=== PATIENT | female | born 1980 | race African-American/Black ===

== ENCOUNTER 2017-01-08 18:05 | Emergency (ER) | payer MEDICARE, OTHER ==
--- NOTE | 2017-01-08 19:08 | ER Document Report ---
ED Medical Screen (RME) - General Chief Complaint: Anxiety Stated Complaint: POSSIBLE PANIC ATTACK Time Seen by Provider: 01/08/17 19:06 Mode of Arrival: Ambulatory Information source: Patient - pt has been under a great deal of stress recently and feels her anxiety is very high. Is not sure if she could hurt herself. Denies HI TRAVEL OUTSIDE OF THE [place] IN LAST 30 DAYS: No - Related Data Allergies/Adverse Reactions: Penicillins Allergy (Verified 01/08/17 18:22) Past Medical History Renal/ Medical History: Denies: Hx Peritoneal Dialysis Physical Exam - Vital signs Vitals: Temp Pulse Resp BP Pulse Ox 98.0 F 84 18 139/94 H 99 01/08/17 18:22 01/08/17 18:22 01/08/17 18:22 01/08/17 18:22 01/08/17 18:22 Course - Vital Signs Vital signs: Temp Pulse Resp BP Pulse Ox 98.0 F 84 18 139/94 H 99 01/08/17 18:22 01/08/17 18:22 01/08/17 18:22 01/08/17 18:22 01/08/17 18:22 Doctor's Discharge - Discharge Instructions: Anxiety ([facility])
--- NOTE | 2017-01-08 19:54 | ER Document Report ---
ED Psych Disorder / Suicide - General Chief Complaint: Anxiety Stated Complaint: POSSIBLE PANIC ATTACK Time Seen by Provider: 01/08/17 19:06 Mode of Arrival: Ambulatory Information source: Patient TRAVEL OUTSIDE OF THE [place] IN LAST 30 DAYS: No - HPI Patient complains to provider of: Suicidal ideation Onset: Other Onset was: Gradual Suicide Risk Factors: Depressed, Lack of social support Normal mood: No Associated symptoms: Depressed, Flat affect Similar symptoms previously: Yes Recently seen / treated by doctor: No Notes: 36-year-old female who presents to the emergency room complaining of depression and anxiety with possible panic attacks, she reports over the past week her symptoms have been worsening, she has a history of symptoms in the past with a suicide attempt by overdose approximately 10 years ago, she feels as though she is at that point again although she does not have any active suicidal plan, she reports hearing voices telling her that life is not worth it anymore and she does feel like she should just "crawl in a hole and ", patient is tearful, she reports that she does not want to be a mother anymore, she does not want to be a anymore, she feels overwhelmed because 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, her 23-year-old cousin who is currently and her , she has a difficult time opening up and talking to people when she is feeling overwhelmed and therefore takes the burden upon herself, she has been on medications in the past but not in recent years, she has not been in any type of mental health program within the past few years - Related Data Allergies/Adverse Reactions: Penicillins Allergy (Verified 01/08/17 18:22) Home Medications: Current Home Medications No Home Medications 01/08/17 [History] Past Medical History - General Information source: Patient - pt has been under a great deal of stress recently and feels her anxiety is very high. Is not sure if she could hurt herself. Denies HI - Social History Smoking Status: Unknown if Ever Smoked Family History: Reviewed & Not Pertinent Patient has suicidal ideation: No Patient has homicidal ideation: No Renal/ Medical History: Denies: Hx Peritoneal Dialysis Review of Systems - Review of Systems Constitutional: No symptoms reported EENT: No symptoms reported Cardiovascular: No symptoms reported Respiratory: No symptoms reported Gastrointestinal: No symptoms reported Genitourinary: No symptoms reported Female Genitourinary: No symptoms reported Musculoskeletal: No symptoms reported Skin: No symptoms reported Hematologic/Lymphatic: No symptoms reported Neurological/Psychological: See HPI -: Yes All other systems reviewed and negative Physical Exam - Vital signs Vitals: Temp Pulse Resp BP Pulse Ox 98.0 F 84 18 139/94 H 99 01/08/17 18:22 01/08/17 18:22 01/08/17 18:22 01/08/17 18:22 01/08/17 18:22 Interpretation: Normal - General General appearance: Appears well, Alert - HEENT Head: Normocephalic, Atraumatic Eyes: Normal Pupils: PERRL - Respiratory Respiratory status: No respiratory distress Chest status: Nontender Breath sounds: Normal Chest palpation: Normal - Cardiovascular Rhythm: Regular Heart sounds: Normal auscultation Murmur: No - Abdominal Inspection: Normal Distension: No distension Bowel sounds: Normal Tenderness: Nontender Organomegaly: No organomegaly - Back Back: Normal, Nontender - Extremities General upper extremity: Normal inspection, Nontender, Normal color, Normal ROM , Normal temperature General lower extremity: Normal inspection, Nontender, Normal color, Normal ROM , Normal temperature, Normal weight bearing. No: Kelli's sign - Neurological Neuro grossly intact: Yes Cognition: Normal Orientation: AAOx4 Viola Coma Scale Eye Opening: Spontaneous Viola Coma Scale Verbal: Oriented Presley Coma Scale Motor: Obeys Commands Presley Coma Scale Total: 15 Speech: Normal Motor strength normal: LUE, RUE, LLE, RLE Sensory: Normal - Psychological Associated symptoms: Depressed, Flat affect, Tearful - Skin Skin Temperature: Warm Skin Moisture: Dry Skin Color: Normal Course - Re-evaluation Re-evalutation: 01/09/17 01:56 Patient is a 36-year-old female, she admits to depression, passive thoughts of suicide, is hearing voices telling her that it is not worth it to go on, she has a history of an overdose approximately 10 years ago and does admit that she feels as though she is at that point again, therefore in order to keep patient safe involuntary commitment paperwork was completed and patient will be held in the emergency room for further evaluation by the mental health team, medically cleared for transfer or discharge - Vital Signs Vital signs: Temp Pulse Resp BP Pulse Ox 98.6 F 84 20 142/89 H 100 01/08/17 21:00 01/08/17 23:45 01/08/17 23:45 01/08/17 21:00 01/08/17 21:00 - Laboratory Result Diagrams: 01/08/17 20:30 01/08/17 20:30 Laboratory results interpreted by me: 01/08/17 01/08/17 20:30 20:30 RDW 14.3 H Creatinine 0.48 L Salicylates < 1.0 L Acetaminophen < 10 L - EKG Interpretation by Nv EKG shows normal: Sinus rhythm Rate: Normal Rhythm: NSR Discharge - Discharge Clinical Impression: Suicidal ideation, Anxiety Depression Qualifiers: Depression Type: unspecified Qualified Code(s): F32.9 - Major depressive disorder, single episode, unspecified Condition: Stable Disposition: PSYCH HOSP/UNIT Instructions: Anxiety ([facility])
[2017-01-08] MEDS ORDERED: DIAZEPAM 2 MG TABLET PO ONE (20:02)
[2017-01-08 20:52] LABS: ABSOLUTE EOSINOPHILS # (AUTO) 0.2 10^3/uL (0.0-0.6); ABSOLUTE LYMPHOCYTES (AUTO) 2.6 10^3/uL (0.5-4.7); ABSOLUTE MONOCYTES (AUTO) 0.5 10^3/uL (0.1-1.4); ABSOLUTE NEUT (AUTO) 2.7 10^3/uL (1.7-8.2); BASOPHILS % (AUTO) 0.7 % (0-2); EOSINOPHILS % (AUTO) 3.6 % (0-6); HEMATOCRIT 38.2 % (36.0-47.0); HEMOGLOBIN 12.6 g/dL (12.0-15.5); HGB HCT DIFFERENCE -0.4; LYMPHOCYTES % (AUTO) 42.5 % (13-45); MEAN CORPUSCULAR HEMOGLOBIN 27.5 pg (27.0-33.4); MEAN CORPUSCULAR HGB CONC 32.9 g/dL (32.0-36.0); MEAN CORPUSCULAR VOLUME 84 fl (80-97); RED BLOOD COUNT 4.57 10^6/uL (3.72-5.28); RED CELL DISTRIBUTION WIDTH 14.3 % (11.5-14.0); SEGMENTED NEUTROPHILS % (AUTO) 45.2 % (42-78)
[2017-01-08 21:06] LABS: ALANINE AMINOTRANSFERASE 33 U/L (9-52); ALCOHOL < 10 mg/dL (NONE DETECTED); ALKALINE PHOSPHATASE 104 U/L (38-126); ANION GAP 11 (5-19); ASPARTATE AMINO TRANSFERASE 22 U/L (14-36); BILIRUBIN,DIRECT 0.2 mg/dL (0.0-0.4); BILIRUBIN,TOTAL 0.2 mg/dL (0.2-1.3); BLOOD UREA NITROGEN 10 mg/dL (7-20); CALCIUM 9.6 mg/dL (8.4-10.2); CARBON DIOXIDE 22 mmol/L (22-30); CHLORIDE 107 mmol/L (98-107); CREATININE RESULT 0.48 mg/dL (0.52-1.25); GLUCOSE 97 mg/dL (75-110); POTASSIUM 3.9 mmol/L (3.6-5.0); SODIUM 140.3 mmol/L (137-145); TOTAL PROTEIN 7.1 g/dL (6.3-8.2)
[2017-01-08 21:45] LABS: APPEARANCE,URINE CLEAR; BILIRUBIN,URINE NEGATIVE (NEGATIVE); GLUCOSE, URINE NEGATIVE (NEGATIVE); KETONES,URINE NEGATIVE (NEGATIVE); LEUKOCYTE ESTERASE,URINE NEGATIVE (NEGATIVE); NITRITE,URINE NEGATIVE (NEGATIVE); PROTEIN,URINE NEGATIVE (NEGATIVE); URINE SPECIFIC GRAVITY 1.017; UROBILINOGEN,URINE NEGATIVE mg/dL (<2.0)
[2017-01-08 21:59] LABS: URINE BARBITURATES SCREEN NEGATIVE; URINE METHADONE SCREEN NEGATIVE; URINE OPIATES LOW NEGATIVE; URINE PHENCYCLIDINE SCREEN NEGATIVE
--- NOTE | 2017-01-09 09:38 | ER Document Report ---
Doctor's Note Notes: 01/09/17 09:37 I have evaluated this patient this am and has no c/o at this time. Feels all of their needs are being met and physical exam is normal. Awaiting dispositon per mental health.
[2017-01-09] MEDS ORDERED: IBUPROFEN 600 MG TABLET PO ONE (10:54)
[2017-01-09] MEDS ORDERED: CETIRIZINE 10 MG TABLET PO ONE (10:54)
--- NOTE | 2017-01-09 12:36 | PSYCHOLOGICAL NOTE ---
Psych Note - Psych Note Psych Note: Patient is a 36 year old female who presented yesterday due to possible anxiety and panic attacks. Patient reported increasing severity and frequency in her symptoms. Patient additionally reported and was subsequently placed on IVC for, that she no longer wanted to be a mother, was hearing voices telling her she was bad, and suicidal ideations. Patient this morning has informed her nurse that she would like to leave. She reported she talked with her and feels better, and states she has plans, and also promised her kids that they would go [place] the [place] today. Patient this morning states she had been doing well , and due to some current stressors, she became overwhelmed and left the house and was driving around. Patient states she started having thoughts about her family being better off without her, and she drove to the ER. Patient states her current stressors are her eldest son is incarcerated for unknown amount of time, and she is also possibly losing her disability. Patient states last month she received a letter from [employer] stating her case was under review due to tax filings in 2013 where her income was reported higher than normal. Patient states she thinks the person who did her taxes put a higher amount down, in order for her to receive more money in a refund. Patient states she had no idea, and during her phone appointment, she was asked to provide the accompanying documents, which she states she doesn't have. Patient states she is worried about losing her income. Patient reports in addition to her financial stressors, she has 4 children under the ages of 13 in her home, as well as her , her younger cousin who is , and her cousin's small child. Patient states she could feel her anxiety creeping up, and did not say anything like she should have. Patient states she has been off of medications for her depression and anxiety for about 10 years, due to them causing weight gain, and not feeling like she needed them anymore. Patient states yesterday morning she argued with her and did not feel like she was being heard, and then later in the day when her child did not clean to her specificity, she "lost it" and told the kids she didn't want to be there mother any more, told her she didn't want to be his , etc. Patient states she just left the home and no one knew where she was. Patient states she feels better today. She states she was informed that she would be leaving this morning and has plans with her children. Patient's , Tracy states: everything came as a surprise. He states they live in a big house, he has a job, and everything is fine. He states he usually picks up on her mental health needs. He states they can call her [place] and [place] her [place] [place] [place] Patient is A&O. Mood is depressed with tearful affect. Patient denies current SI; however, endorsed upon arrival. Patient denies homicidal ideations, intent, plan, or means. Patient denies A/V H; delusions not noted. Thought processes were organized and goal oriented towards discharge. Conversational speech was WNL for prosody. Intellectual abilities were estimated within average range. Attention and focus were fair. Insight, judgment, and impulse control were poor. Unspecified Depressive Disorder, per hx Unspecified Anxiety Disorder, per hx R/O Bipolar Disorder Patient is recommended to continue under IVC and seek 24 hour inpatient psychiatric treatment. Patient is considered a danger to herself, and possibly others. Patient initially presented with SI stating she no longer wanted to be a mother or even alive. Patient today presents anxious stating she is ready to leave because she had plans to take her children to the zoo. This incongruence is concerning due to the impulsive nature, poor insight and judgment, etc. surrounding her intentions and mood lability. I consulted with Dr. Yang in regards to the care and management of this patient.
[2017-01-09] MEDS ORDERED: OLANZAPINE 2.5 MG TABLET PO SCH ×2 (12:45→22:00)
[2017-01-09] MEDS ORDERED: DIVALPROEX SODIUM 250 MG TABLET.DR PO SCH (13:00)
[2017-01-09] MEDS ORDERED: OLANZAPINE 2.5 MG TABLET PO ONE (14:00)
[2017-01-09] MEDS ORDERED: DIVALPROEX SODIUM 250 MG TABLET.DR PO ONE (14:00)
--- NOTE | 2017-01-09 17:11 | EKG REPORT ---
SEVERITY:- NORMAL ECG - SINUS RHYTHM : Confirmed by: Emili Matthew MD 09-Jan-2017 17:10:45
[2017-01-09] MEDS ORDERED: BUSPIRONE HCL 10 MG TABLET PO SCH (22:00)
[2017-01-09] MEDS: DIVALPROEX SODIUM 250 MG TABLET.DR PO SCH (22:01)
[2017-01-10] MEDS: DIVALPROEX SODIUM 250 MG TABLET.DR PO SCH (09:52)
--- NOTE | 2017-01-10 11:46 | ER Document Report ---
Doctor's Note Notes: 01/10/17 11:45 I have evaluated this patient this am and has no c/o at this time. Feels all of their needs are being met and physical exam is normal. Awaiting dispositon per mental health. 01/10/17 15:16 Pt seen by Mental Health and they are recommending discharge home with . Pt denies suicidally to me. Provided 7 days of Buspar and Depakote with f/u at [facility].
[2017-01-10] MEDS ORDERED: VENLAFAXINE HCL 37.5 MG CAP.SR.24H PO ONE (15:09)
--- NOTE | 2017-01-10 15:09 | ER Document Report ---
ED Psych Disorder / Suicide - General Mode of Arrival: Ambulatory TRAVEL OUTSIDE OF THE [place] IN LAST 30 DAYS: No <KIRIT STERN - Last Filed: 01/10/17 14:58> <NEETA MORRIS - Last Filed: 01/10/17 15:16> - General Chief Complaint: Anxiety Stated Complaint: POSSIBLE PANIC ATTACK Time Seen by Provider: 01/08/17 19:06 - HPI Notes: Contacted check in on patient to a 36-year-old female under involuntary commitment at [facility]. Patient initially presented depressed with suicidal ideation. Patient was held overnight for further observation and disposition as well as pharmacological intervention. Patient was started on Depakote 250 mg twice daily and BuSpar 10 mg nightly. Patient today presents with a brighter affect and states she feels better. Patient states she feels helped her sleep. She states she does not feel like her emotions are all over the place and that she has a clear head. Patient reports she has contacted her provider with [facility] in [place] and can be seen for an emergency appointment if not this afternoon and tomorrow. Patient reports she has spent time thinking about why she was held overnight and has evaluated her knee and feels that it was the right thing to do. Patient apologized for any mouth treatment directed towards this clinician yesterday. Patient states she does have numerous stressors, but states she does not feel so overwhelmed. Patient reports she and her have had a long conversation and she knows that she is wanted and supported. Patient's at bedside reports no concerns for her safety. He agrees that he will secure all pills in the home into a lock box and only provide patient access to her doses when they are due. Her is in agreement with patient following up with [facility] and states he will accompany her for support. Patient is alert and oriented 4. Mood is euthymic with smiling/brighter affect. Patient denies suicidal/homicidal ideations, intent, plan, means. Patient denies A/VH; delusions not noted. Thought processes were organized and more rational. Patient demonstrated good insight as evidenced by engaging in her discharge plan and taking initiative to contact her provider. Intellectual abilities were estimated with an average range. Attention and focus was good. Impulse control and judgment were fair. Unspecified Depressive Disorder, per hx Unspecified Anxiety Disorder, per hx R/O Bipolar Disorder Patient is psychiatrically cleared recommended for recent IVC and discharge to her . Patient no longer meets IVC criteria per [place] General Statute 122C she denies SI and HI. Patient presents overall with improved disposition and affect. Patient reports she feels that the medications were helpful and she would like to continue. Patient is in agreement with plan of care and reports she prefers for her to be home and will assist in follow-up care tomorrow. I consulted with Dr. Yang in regards to the care and management of this patient. (KIRIT STERN) - Related Data Allergies/Adverse Reactions: Penicillins Allergy (Verified 01/08/17 18:22) Past Medical History - General Information source: Patient - pt has been under a great deal of stress recently and feels her anxiety is very high. Is not sure if she could hurt herself. Denies HI - Social History Smoking Status: Unknown if Ever Smoked Chew tobacco use (# tins/day): No Frequency of alcohol use: Social Drug Abuse: Marijuana Family History: Reviewed & Not Pertinent Patient has suicidal ideation: No Patient has homicidal ideation: No Renal/ Medical History: Denies: Hx Peritoneal Dialysis Psychiatric Medical History: Reports: Hx Depression Past Surgical History: Reports: Hx Tubal Ligation - Immunizations Hx Diphtheria, Pertussis, Tetanus Vaccination: Yes <KIRIT STERN - Last Filed: 01/10/17 14:58> Course - Laboratory Result Diagrams: 01/08/17 20:30 01/08/17 20:30 <KIRIT STERN - Last Filed: 01/10/17 14:58> - Laboratory Result Diagrams: 01/08/17 20:30 01/08/17 20:30 <NEETA MORRIS - Last Filed: 01/10/17 15:16> - Vital Signs Vital signs: Temp Pulse Resp BP Pulse Ox 97.9 F 105 H 18 146/100 H 99 01/10/17 07:15 01/10/17 07:15 01/10/17 07:15 01/10/17 07:15 01/10/17 07:15 - Laboratory Laboratory results interpreted by me: 01/08/17 01/08/17 20:30 20:30 RDW 14.3 H Creatinine 0.48 L Salicylates < 1.0 L Acetaminophen < 10 L Discharge <KIRIT STERN - Last Filed: 01/10/17 14:58> <ALEXANDRANEETA Sanders - Last Filed: 01/10/17 15:16> - Discharge Clinical Impression: Suicidal ideation, Anxiety Depression Qualifiers: Depression Type: unspecified Qualified Code(s): F32.9 - Major depressive disorder, single episode, unspecified Condition: Stable Disposition: HOME, SELF-CARE Instructions: Anxiety ([facility]) Additional Instructions: Bipolar Disorder Bipolar disorder is also called manic-depressive disorder. Depression alternates with brain hyperactivity called beatriz. Each phase lasts from several days to a few weeks. We don't know exactly what causes bipolar disorder , but it's treatable. During the "manic phase," you may feel elated and energetic. You may have racing thoughts, rapid speech, increased activity, and grandiose ideas. During this time, you may not realize how poor your judgement is. Inappropriate spending, drug abuse, excessive alcohol use, marriage problems, and irresponsible sexual behavior are common during the manic phase. During the "depressive phase," you might feel depressed, guilty, worthless , fatigued, and unable to concentrate. You might have thoughts of suicide. Good treatments are available for bipolar disorder. Symsonia is a classic drug for bipolar disorder, and is still often useful. If the manic phase is very mild, an antidepressant alone can be prescribed. If the manic phase is very severe, an antipsychotic medicine (such as Haldol) may be needed. The treatment must be matched to your symptoms, so it's important to work closely with your psychiatric care provider. Contact your physician, the hospital emergency center, crisis line, or your counsellor if you are losing control or having self-destructive thoughts. Please return to the ED if your symptoms worsen. Your has agreed to lock all pills in the home into a lock box and restrict your access. He will provide you your doses when due. Please work with your provider to engage in outpatient therapy. Prescriptions: Buspirone HCl [Buspar 10 mg Tablet] 10 mg PO QHS 7 Days Divalproex Sodium [Depakote Er 250 Mg Tablet] 250 mg PO BID 7 Days Referrals: SILAS JASMINE MD [Primary Care Provider] - Follow up as needed [facility] [Provider Group] - Follow up in 3-5 days (Please call today and advise of your discharge and need for f/u appointment as discussed.)
[2017-01-10 15:28] VITALS: BP 135/93
[2017-01-10] MEDS ORDERED: BUSPIRONE HCL 10 MG TABLET PO SCH (22:00)
[2017-01-11] MEDS ORDERED: VENLAFAXINE HCL 37.5 MG CAP.SR.24H PO SCH (10:00)
== END 2017-01-10 15:31 | disposition home or self-care (01) ==
LOC: ER 18:05
DX: F41.9 Anxiety disorder, unspecified (principal); F32.9 Major depressive disorder, single episode, unspecified; R45.851 Suicidal ideations; Z91.5 Personal history of self-harm; Z88.0 Allergy status to penicillin
CPT/HCPCS: 93005; 99285; 36415; 80307 ×4; 84703; 85025; 80053; 81001; 93010; A9270 ×6; J3490